=== PATIENT | male | born 1980 | race Caucasian/White ===

== ENCOUNTER 2019-09-04 15:27 | Observation (INO) ==
[2019-09-04 16:26] LABS: Bilirubin,Urine Negative (Negative); Blood,Urine Negative (Negative); Clarity,Urine Clear (Clear); Color,Urine Colorless (Yellow); Glucose,Urine (UA) >=1000 mg/dL (Normal); Ketones,Urine Trace mg/dL (Negative); Leukocyte Esterase,Urine Negative (Negative); Nitrite,Urine Negative (Negative); Protein,Urine Negative (Neg-Trace); Specific Gravity,Urine > 1.030 (1.010-1.025); Urobilinogen,Urine Normal (Normal)
[2019-09-04 16:44] LABS: Basophils # 0.1 K/mcL (0.0-0.2); Basophils % 1.2 %; Eosinophils # 0.1 K/mcL (0.0-0.6); Eosinophils % 1.5 %; Hematocrit 44.5 % (37.5-50.1); Hemoglobin 14.3 g/dL (12.9-16.9); Immature Granulocytes % 0.5 % (0-4); Lymphocytes # 1.8 K/mcL (0.6-4.6); Lymphocytes % 27.1 %; Mean Corpuscular HGB Conc 32.1 g/dL (31.6-35.5); Mean Corpuscular Volume 96.5 fL (83.0-100.0); Monocytes # 0.5 K/mcL (0.0-1.3); Monocytes % 8.1 %; Platelet Count 291 K/mcL (140-400); Red Blood Count 4.61 M/mcL (4.19-5.50); Red Cell Distribution Width 13.1 % (11.5-14.5); Segmented Neutrophils % 61.6 %; White Blood Count 6.5 K/mcL (4.3-11.1)
[2019-09-04 17:01] LABS: Amphetamine Screen,Urine Negative ng/mL (Cutoff=1000); Barbiturate Screen,Urine Negative ng/mL (Cutoff=200); Benzodiazepines Screen,Urine Negative ng/mL (Cutoff=200); Cannabinoid Screen,Urine Negative ng/mL (Cutoff = 50); Cocaine Screen,Urine Negative ng/mL (Cutoff= 300); Opiate Screen,Urine Negative ng/mL (Cutoff=300); Phencyclidine Screen,Urine Negative ng/mL (Cutoff=25)
[2019-09-04 17:18] LABS: Acetaminophen < 10 mcg/mL (10-20); BUN/Creatinine Ratio 26 (6-26); Blood Urea Nitrogen 19 mg/dL (6-20); Calcium 9.4 mg/dL (8.6-10.3); Carbon Dioxide 23 mEq/L (23-29); Chloride 101 mEq/L (98-107); Chol/HDL Ratio 3.3 (0-4.9); Cholesterol 172 mg/dL (< 200); Ethanol < 10 mg/dL (Less than 10); Glucose 228 mg/dL (70-105); HDL Cholesterol 52 mg/dL (40-59); LDL Cholesterol,Calculated 87 mg/dL (< 100); Osmolality,Calculated 291 (280-300); Potassium 4.5 mEq/L (3.5-5.1); Salicylate < 2.5 mg/dL (15.0-30.0); Sodium 136 mEq/L (136-145); Triglycerides 163 mg/dL (< 150); eGFR For African Americans > 60 (> 60); eGFR For Non-African Americans > 60 (> 60)
[2019-09-04] MEDS ORDERED: Simethicone 80 MG TAB.CHEW PO STA ×2 (17:21→17:25)
[2019-09-04] MEDS ORDERED: *HR* Metformin 500 MG TABLET PO STA ×2 (17:21→17:24)
[2019-09-04] MEDS ORDERED: *HR* LORazepam 2 MG/ML VIAL IM PRN (20:36)
[2019-09-04] MEDS ORDERED: hydrOXYzine pamoate 25 MG CAPSULE PO PRN (20:36)
[2019-09-04] MEDS ORDERED: Mag Hydrox/Al Hydrox/Simeth 30 ML UDC PO PRN (20:36)
[2019-09-04] MEDS ORDERED: Ibuprofen 400 MG TABLET PO PRN (20:36)
[2019-09-04] MEDS ORDERED: haloperidoL 5 MG TABLET PO PRN (20:36)
[2019-09-04] MEDS ORDERED: QUEtiapine Fumarate 25 MG TABLET PO PRN (20:36)
[2019-09-04] MEDS ORDERED: Haloperidol Lactate 5 MG/ML VIAL IM PRN (20:36)
[2019-09-04] MEDS ORDERED: *HR* LORazepam 1 MG TABLET PO PRN (20:36)
[2019-09-04] MEDS ORDERED: Loratadine 10 MG TABLET PO SCH (21:00)
[2019-09-04] MEDS ORDERED: Divalproex (24 HR) 500 MG TABLET PO SCH (21:00)
[2019-09-04] MEDS ORDERED: Famotidine 20 MG TABLET PO SCH (21:00)
[2019-09-04] MEDS ORDERED: Cariprazine Hcl [Vraylar] 4.5 MG PO SCH (21:00)
[2019-09-04] MEDS: Azelastine 0.1% Nasal Spray 30 ML BOTTLE NS SCH (23:06)
[2019-09-04] MEDS: Fluticasone Propionate Nasal 50 MCG/SPRAY BOTTLE NS SCH (23:07)
[2019-09-05] MEDS: Simethicone 80 MG TAB.CHEW PO SCH ×2 (06:30→12:57)
[2019-09-05] MEDS ORDERED: *HR* Metformin 500 MG TABLET PO SCH (08:00)
[2019-09-05] MEDS ORDERED: Cholecalciferol (D-3) 1,000 UNIT (25MCG) TABLET PO SCH (09:00)
[2019-09-05] MEDS ORDERED: Aspirin Enteric Coated 81 MG Tablet PO SCH (09:00)
[2019-09-05] MEDS ORDERED: *HR* Pioglitazone 30 MG TABLET PO SCH (09:00)
[2019-09-05] MEDS ORDERED: Patient Taking Own Medication 1 EACH PO SCH (09:00)
[2019-09-05] MEDS ORDERED: (Linagliptin [Tradjenta] 5 MG PO SCH (09:00)
[2019-09-05] MEDS ORDERED: BuPROPion XL (24 HR) 150 MG TABLET PO SCH (09:00)
[2019-09-05 09:05] VITALS: BP 100/70
[2019-09-05] MEDS: Azelastine 0.1% Nasal Spray 30 ML BOTTLE NS SCH (10:22)
[2019-09-05] MEDS: Fluticasone Propionate Nasal 50 MCG/SPRAY BOTTLE NS SCH (10:22)
[2019-09-05] MEDS ORDERED: CANAGLIFLOZIN 300 MG PO SCH (18:00)
== END 2019-09-05 15:55 | disposition home or self-care (01) ==
LOC: EMEROOARM 15:27 → 1ANU 20:17 → INTOOBSV 20:17 → 1ANU 21:25
PROVIDERS: ADMIT Psychiatry & Neurology Psychiatry; ATTEND Psychiatry & Neurology Psychiatry

== ENCOUNTER 2019-12-13 21:10 | Inpatient (IN) ==
[2019-12-13] MEDS ORDERED: 0.9 % Sodium Chloride 1,000 ML IVC ONE ×2 (21:28→21:31)
[2019-12-13] MEDS ORDERED: Isovue-370 500 ML BOTTLE IVP ONE (21:48)
[2019-12-13 22:08] LABS: Hematocrit 50.4 % (37.5-50.1); Hemoglobin 16.5 g/dL (12.9-16.9); Mean Corpuscular HGB Conc 32.7 g/dL (31.6-35.5); Mean Corpuscular Hemoglobin 32.2 pg (28.0-33.3); Mean Corpuscular Volume 98.4 fL (83.0-100.0); Mean Platelet Volume 9.9 fL (9.4-12.4); Platelet Count 328 K/mcL (140-400); Red Blood Count 5.12 M/mcL (4.19-5.50); Red Cell Distribution Width 13.1 % (11.5-14.5)
[2019-12-13 22:18] LABS: White Blood Count 31.5 K/mcL (4.3-11.1)
[2019-12-13 22:22] LABS: Lymphocytes # 1.9 K/mcL (0.6-4.6); Monocytes # 1.9 K/mcL (0.0-1.3); Neutrophils # 27.7 K/mcL (1.6-8.9); Platelet Estimate Normal (Normal)
[2019-12-13 22:28] LABS: VBG HCO3 7 mEq/L (21-27); VBG PCO2 29 mmHg (41-51); VBG PH 6.96 pH Units (7.32-7.42); VBG PO2 99 mmHg (25-50)
[2019-12-13 22:38] LABS: Phosphorous 9.1 mg/dL (2.7-4.5); Potassium 4.3 mEq/L (3.5-5.1); Troponin I 0.05 ng/mL (< 0.04)
[2019-12-13] MEDS ORDERED: Potassium Chloride 40 MEQ, Lidocaine 1% 2 ML in 0.9 % Sodium Chloride 500 ML IVPB ONE (22:40)
[2019-12-13 23:01] LABS: Bilirubin,Urine Negative (Negative); Blood,Urine Small (Negative); Clarity,Urine Turbid (Clear); Color,Urine Yellow (Yellow); Glucose,Urine (UA) >=1000 mg/dL (Normal); Ketones,Urine 60 mg/dL (Negative); Leukocyte Esterase,Urine Negative (Negative); Nitrite,Urine Negative (Negative); PH,Urine 5.5 pH Units (5.0-8.0); Protein,Urine 100 mg/dL (Neg-Trace); RBC,Urine 0-3 per hpf (0-3); Specific Gravity,Urine 1.018 (1.010-1.025); Squamous Epithelial Cell,Urine Few per hpf (None-Few); WBC,Urine 0-3 per hpf (0-3)
[2019-12-13] MEDS: Insulin Human Regular 100 UNIT in 0.9 % Sodium Chloride 100 ML IVC SCH (23:16)
[2019-12-14 00:13] LABS: VBG HCO3 7 mEq/L (21-27); VBG PCO2 25 mmHg (41-51); VBG PH 7.07 pH Units (7.32-7.42); VBG PO2 133 mmHg (25-50)
[2019-12-14] MEDS ORDERED: Naloxone 0.4 MG/ML INJ IVP PRN (01:42)
[2019-12-14] MEDS ORDERED: Acetaminophen 325 MG TABLET PO PRN (01:42)
[2019-12-14] MEDS ORDERED: *HR* HYDROcodone/Acet 5/325 mg TABLET PO PRN (01:42)
[2019-12-14] MEDS ORDERED: Insulin Regular, Human 100 UNIT/ML IV PRN (01:42)
[2019-12-14] MEDS ORDERED: *HR* Dextrose 50 % in Water (Vial) 50 ML VIAL IVP PRN (01:42)
[2019-12-14] MEDS ORDERED: Ondansetron 4 MG/2 ML VIAL IVP PRN (01:42)
[2019-12-14] MEDS ORDERED: Calcium Gluconate 1gm/50mL 1 GM/50 ML BAG IVPB PRN (02:00)
[2019-12-14] MEDS: Piperacillin/Tazobactam 3.375 GM in 0.9 % Sodium Chloride Mini Bag 100 ML IVPB SCH ×2 (03:01→13:08)
[2019-12-14] MEDS: 0.9 % Sodium Chloride w KCl 20 MEQ/1,000 ML MLS IVC SCH ×2 (03:02→05:00)
[2019-12-14 03:10] LABS: Prothrombin Time 11.7 Seconds (9.4-12.1)
[2019-12-14 03:12] LABS: Activated Partial Thrombo Time 21.9 Seconds (26.0-36.0)
[2019-12-14 03:40] LABS: Alanine Aminotransferase 2841 Units/L (7-52); Albumin 4.1 g/dL (3.5-5.7); Albumin/Globulin Ratio 1.3 (1.1-2.2); Alkaline Phosphatase 215 Units/L (34-104); Aspartate Amino Transferase > 3000 Units/L (13-39); BUN/Creatinine Ratio 26 (6-26); Bilirubin,Indirect 0.7 mg/dL (0.0-1.0); Bilirubin,Total 1.7 mg/dL (0.3-1.0); Blood Urea Nitrogen 64 mg/dL (6-20); Calcium 8.8 mg/dL (8.6-10.3); Carbon Dioxide 9 mEq/L (23-29); Chloride 101 mEq/L (98-107); Creatine Kinase 64 Units/L (30-223); Globulin 3.1 g/dL (2.4-3.5); Glucose 306 mg/dL (70-105); Lipase > 1800 Units/L (11-82); Magnesium 2.5 mg/dL (1.6-2.6); Osmolality,Calculated 310 (280-300); Phosphorous 3.1 mg/dL (2.7-4.5); Potassium 3.8 mEq/L (3.5-5.1); Sodium 135 mEq/L (136-145); Total Protein 7.2 g/dL (6.4-8.9); Uric Acid 13.9 mg/dL (2.3-7.6); eGFR For African Americans 36 (> 60); eGFR For Non-African Americans 30 (> 60)
[2019-12-14 03:41] LABS: Protein/Creatinine Ratio,Urine 4.59 mg/mg (0.00-0.20); Sodium, Urine 22.5 mEq/L
[2019-12-14 03:52] LABS: Ferritin > 1500 ng/mL (20-250)
[2019-12-14 03:58] LABS: Lactate Dehydrogenase 2271 Units/L (140-271)
[2019-12-14] MEDS ORDERED: 0.45 % Sodium Chloride w/KCl 20 MEQ/1,000 ML MLS IVC SCH (04:00)
[2019-12-14] MEDS ORDERED: D5% in 0.45% NACL 1,000 ML IVC PRN (04:18)
[2019-12-14 04:49] LABS: Basophils % 0.2 %; Hematocrit 45.7 % (37.5-50.1); Hemoglobin 15.3 g/dL (12.9-16.9); Immature Granulocytes % 1.9 % (0-4); Lymphocytes # 0.7 K/mcL (0.6-4.6); Lymphocytes % 4.5 %; Mean Corpuscular HGB Conc 33.5 g/dL (31.6-35.5); Mean Corpuscular Volume 92.5 fL (83.0-100.0); Mean Platelet Volume 9.3 fL (9.4-12.4); Monocytes # 0.4 K/mcL (0.0-1.3); Monocytes % 2.4 %; Neutrophils # 14.7 K/mcL (1.6-8.9); Platelet Count 243 K/mcL (140-400); Red Blood Count 4.94 M/mcL (4.19-5.50); White Blood Count 16.2 K/mcL (4.3-11.1)
[2019-12-14] MEDS ORDERED: ACETYLCYSTEINE IVC ONE (05:00)
[2019-12-14] MEDS ORDERED: D5 IVC ONE (05:00)
[2019-12-14] MEDS ORDERED: WATER IVC ONE (05:00)
[2019-12-14 05:07] LABS: Acetaminophen < 10 mcg/mL (10-20); BUN/Creatinine Ratio 28 (6-26); Blood Urea Nitrogen 65 mg/dL (6-20); Calcium 8.3 mg/dL (8.6-10.3); Carbon Dioxide 11 mEq/L (23-29); Chloride 106 mEq/L (98-107); Glucose 214 mg/dL (70-105); Magnesium 2.4 mg/dL (1.6-2.6); Osmolality,Calculated 309 (280-300); Phosphorous 2.2 mg/dL (2.7-4.5); Potassium 3.9 mEq/L (3.5-5.1); Sodium 137 mEq/L (136-145); eGFR For African Americans 38 (> 60); eGFR For Non-African Americans 32 (> 60)
[2019-12-14] MEDS ORDERED: 0.45 % Sodium Chloride w/KCl 20 MEQ/1,000 ML MLS IVC PRN (05:22)
[2019-12-14] MEDS: D5% in 0.45% NACL w KCl 20 MEQ/1,000 ML MLS IVC PRN ×2 (05:29→12:18)
[2019-12-14] MEDS ORDERED: Insulin Human Regular 100 UNIT in 0.9 % Sodium Chloride 100 ML IVC SCH (05:30)
[2019-12-14] MEDS: *HR* Heparin 5,000 UNIT/ML VIAL SQ SCH ×2 (05:59→15:50)
[2019-12-14] MEDS ORDERED: Acetylcysteine 3,500 MG in D5% in Water 500 ML IVC ONE (06:00)
[2019-12-14] MEDS ORDERED: Piperacillin/Tazobactam 3.375 GM in 0.9 % Sodium Chloride Mini Bag 100 ML IVPB SCH ×2 (08:00→21:00)
[2019-12-14 08:22] LABS: Calcium 7.9 mg/dL (8.6-10.3); Potassium 3.7 mEq/L (3.5-5.1)
[2019-12-14] MEDS: Insulin Human Regular 100 UNIT in 0.9 % Sodium Chloride 100 ML IVC SCH (08:56)
[2019-12-14] MEDS ORDERED: Aspirin Enteric Coated 81 MG Tablet PO SCH (09:00)
[2019-12-14 09:23] LABS: Hepatitis B Surface Antigen Nonreactive (Nonreactive)
[2019-12-14 09:51] LABS: Hepatitis C Virus Antibody Nonreactive (Nonreactive)
[2019-12-14 09:52] LABS: Hepatitis B Core IgM Nonreactive (Nonreactive)
[2019-12-14 09:54] LABS: Hepatitis A Antibody IgM Nonreactive (Nonreactive)
[2019-12-14] MEDS ORDERED: ACETYLCYSTEINE IVC SCH (10:00)
[2019-12-14] MEDS ORDERED: D5 IVC SCH (10:00)
[2019-12-14] MEDS ORDERED: WATER IVC SCH (10:00)
[2019-12-14 10:14] LABS: VBG HCO3 15 mEq/L (21-27); VBG PCO2 29 mmHg (41-51); VBG PH 7.32 pH Units (7.32-7.42); VBG PO2 246 mmHg (25-50)
[2019-12-14 10:34] LABS: Calcium 8.3 mg/dL (8.6-10.3); Potassium 3.5 mEq/L (3.5-5.1)
[2019-12-14 12:47] LABS: Calcium 8.3 mg/dL (8.6-10.3); Potassium 3.8 mEq/L (3.5-5.1)
[2019-12-14 13:07] LABS: Albumin 3.1 g/dL (3.5-5.7); Albumin/Globulin Ratio 1.3 (1.1-2.2); Bilirubin,Direct 0.5 mg/dL (0.0-0.2); Bilirubin,Indirect 0.5 mg/dL (0.0-1.0); Globulin 2.3 g/dL (2.4-3.5); Total Protein 5.4 g/dL (6.4-8.9)
[2019-12-14] MEDS ORDERED: *HR* HYDROmorphone (PF) 1 MG/ML SYRINGE IVP PRN (13:55)
[2019-12-14 15:01] VITALS: BP 119/72
[2019-12-14 15:34] LABS: BUN/Creatinine Ratio 31 (6-26); Blood Urea Nitrogen 41 mg/dL (6-20); Calcium 5.7 mg/dL (8.6-10.3); Carbon Dioxide 10 mEq/L (23-29); Chloride 89 mEq/L (98-107); Osmolality,Calculated 315 (280-300); Potassium 2.4 mEq/L (3.5-5.1); Sodium 125 mEq/L (136-145); eGFR For African Americans > 60 (> 60); eGFR For Non-African Americans > 60 (> 60)
[2019-12-14 15:36] LABS: Glucose 906 mg/dL (70-105)
[2019-12-14 17:12] LABS: Calcium 8.2 mg/dL (8.6-10.3); Potassium 3.8 mEq/L (3.5-5.1); Troponin I 0.15 ng/mL (< 0.04)
== END 2019-12-14 17:22 | disposition short-term general hospital (02) | DRG 871 ==
LOC: EMEROOARM 21:10 → 2NENU 21:10
PROVIDERS: ADMIT Family Medicine; ATTEND Internal Medicine